=== PATIENT | female | born 1985 | race Caucasian/White ===

== ENCOUNTER 2023-08-26 20:21 | Inpatient (IN) | payer OTHER ==
[2023-08-26 21:19] VITALS: BMI 16.6
[2023-08-26] MEDS ORDERED: NALOXONE HCL (KLOXXADO) 8 MG SPRAY NS PRN (21:51)
[2023-08-26] MEDS ORDERED: MAG HYDROX/AL HYDROX/SIMETH 30 ML UNIT-DOSE CUP PO PRN (21:51)
[2023-08-26] MEDS ORDERED: ACETAMINOPHEN 325 MG TABLET (FP) PO PRN (21:51)
[2023-08-26] MEDS ORDERED: MAGNESIUM HYDROX 2400MG/30ML ORAL SUSPENSION 30 ML CUP PO PRN (21:51)
[2023-08-26] MEDS ORDERED: NALOXONE HCL 0.4 MG/ML VIAL IM PRN (21:51)
[2023-08-26] MEDS ORDERED: IBUPROFEN 400 MG TABLET (FP) PO PRN (21:51)
[2023-08-26] MEDS ORDERED: BENZONATATE 200 MG CAPSULE PO PRN (21:51)
[2023-08-26] MEDS ORDERED: BISMUTH SUBSALICYLATE 524 MG/30 ML PO PRN (21:51)
[2023-08-26] MEDS ORDERED: cloNIDine HCL 0.1 MG TABLET PO PRN (21:51)
[2023-08-26] MEDS ORDERED: POLYETHYLENE GLYCOL (HEALTHYLAX) 3350 17 GM PACKET PO PRN (21:51)
[2023-08-26] MEDS ORDERED: DICYCLOMINE HCL 10 MG CAPSULE PO PRN (21:51)
[2023-08-26] MEDS ORDERED: guaiFENesin 600 MG TABLET.ER (FP) PO PRN (21:51)
[2023-08-26] MEDS ORDERED: BENZOCAINE/MENTHOL (CHLORASEPTIC ) LOZENGE MM PRN (21:51)
[2023-08-26] MEDS ORDERED: LOPERAMIDE HCL 2 MG CAPSULE PO PRN (21:51)
[2023-08-26] MEDS ORDERED: NICOTINE POLACRILEX 2 MG LOZENGE BC PRN (21:51)
[2023-08-26] MEDS ORDERED: ONDANSETRON *ODT* 4 MG TABLET SL PRN (21:51)
[2023-08-26] MEDS ORDERED: methaDONE HCL 10 MG TABLET (FOR DETOX USE ONLY) ONE (23:09)
[2023-08-26] MEDS ORDERED: MELATONIN 5 MG TABLETS ONE (23:09)
[2023-08-26] MEDS: methaDONE HCL 10 MG TABLET (FOR DETOX USE ONLY) PO ONE (23:26)
[2023-08-26] MEDS: THIAMINE HCL 100 MG TABLET (FP) PO SCH (23:27)
[2023-08-26] MEDS: MELATONIN 5 MG TABLETS PO SCH (23:27)
[2023-08-26] MEDS: diazePAM 5 MG TABLET PO SCH (23:55)
[2023-08-27] MEDS: PRENATAL VITAMINS W/ FOLIC ACID TABLET (FP) PO SCH (10:18)
[2023-08-27] MEDS: NICOTINE 14 MG/24 HOURS TOPICAL PATCH TD SCH (10:18)
[2023-08-27 12:46] LABS: HEMATOCRIT 33.8 % (32.4-45.2); HEMOGLOBIN 11.3 GM/dL (10.7-15.3); MCH 26.4 pg (25.7-33.7); MCHC 33.4 g/dl (32.0-36.0); MEAN CELL VOLUME 79.1 fl (80-96); MEAN PLT VOLUME 8.6 fl (7.5-11.1); PLATELET COUNT 240 10^3/uL (134-434); RBC 4.27 M/mm3 (3.60-5.2); RDW 15.5 % (11.6-15.6); WHITE BLOOD COUNT 10.3 K/mm3 (4.0-10.0)
[2023-08-27 13:09] LABS: CHLORIDE 108 mmol/L (98-107); SODIUM 139 mmol/L (136-145)
[2023-08-27 13:11] LABS: CALCIUM 8.3 mg/dL (8.5-10.1)
[2023-08-27 13:12] LABS: ALBUMIN 3.1 g/dl (3.4-5.0); ANION GAP 4 mmol/L (4-13); BLOOD UREA NITROGEN 11.1 mg/dL (7-18); CO2 28 mmol/L (21-32); GLUCOSE,RANDOM 89 mg/dL (74-106)
[2023-08-27 13:15] LABS: CREATININE 0.6 mg/dL (0.55-1.3); SGOT/AST 24 U/L (15-37); SGPT/ALT 31 U/L (13-61)
[2023-08-27 13:16] LABS: BILIRUBIN,TOTAL 0.4 mg/dL (0.2-1)
[2023-08-27 13:17] LABS: TOT PROT 6.3 g/dl (6.4-8.2)
[2023-08-27 13:18] LABS: ALK PHOS 46 U/L (45-117)
[2023-08-27] MEDS: diazePAM 5 MG TABLET PO PRN (15:20)
[2023-08-28] MEDS: diazePAM 5 MG TABLET PO SCH (05:26)
[2023-08-28] MEDS: IBUPROFEN 600 MG TABLET (FP) PO PRN (05:27)
[2023-08-28 10:00] VITALS: BP 116/72; PULSE 89; RESP 18; TEMP 97.5
[2023-08-28] MEDS: methaDONE HCL 10 MG TABLET (FOR DETOX USE ONLY) PO ONE (10:12)
[2023-08-29] MEDS ORDERED: diazePAM 5 MG TABLET PO SCH (06:00)
[2023-08-30] MEDS ORDERED: diazePAM 5 MG TABLET PO ONE (06:00)
[2023-08-30] MEDS ORDERED: methaDONE HCL 10 MG TABLET (FOR DETOX USE ONLY) PO ONE (10:00)
== END 2023-08-28 11:12 | disposition left against medical advice (07) | DRG 770 ==
LOC: YASAS 20:21 → Y3N 23:05
PROVIDERS: ADMIT Allergy & Immunology; ATTEND Family Medicine Addiction Medicine
PROC: HZ2ZZZZ Detoxification Services for Substance Abuse Treatment (ICD-10-PCS; principal; 2023-08-26)
DX: F11.23 Opioid dependence with withdrawal (principal); F10.230 Alcohol dependence with withdrawal, uncomplicated; F13.230 Sedative, hypnotic or anxiolytic dependence with withdrawal, uncomplicated; F14.20 Cocaine dependence, uncomplicated; F17.210 Nicotine dependence, cigarettes, uncomplicated; F19.24 Other psychoactive substance dependence with psychoactive substance-induced mood disorder; F41.9 Anxiety disorder, unspecified
CPT/HCPCS: 36415; 80053; 80305; 80307; 81025; 85027; 86780; 87635; 87811; 93005; 93010